=== PATIENT | male | born 1950 | race Two or more races ===

== ENCOUNTER 2019-03-04 06:00 | Inpatient (IN) | payer OTHER ==
[~2019-03-04] VITALS: Ht 165.1 cm; Wt 74.8 kg
[~2019-03-04 06:00] MED LIST: COZAAR50 MG PO; METFORMIN HCL500 MG PO; [UNRECOGNIZED DRUG - OTHER] PO
[2019-03-05] MEDS ORDERED: ROSUVASTATIN CA10 MG PO (09:46)
[2019-03-08] MEDS ORDERED: LOPRESSOR25 MG PO (14:17)
[2019-03-08] MEDS ORDERED: PANTOPRAZOLE SO40 MG PO (14:18)
[2019-03-08] MEDS ORDERED: DOCUSATE SODIU100 MG PO (14:19)
[2019-03-08] MEDS ORDERED: INTESTINEX680 M1 PO (14:19)
[2019-03-08] MEDS ORDERED: ULTRACET PO (14:20)
[2019-03-08] MEDS ORDERED: AMOX-CLAV 875-1 EACH PO (14:24)
== END 2019-03-08 14:38 | disposition home or self-care (01) | DRG 336 ==
LOC: CIR.AMB 06:00 → EDSTATUS 11:15 → SURG 11:15 → CIR.AMB 11:15 → SURG 18:22
PROVIDERS: ADMIT Surgery
PROC: 0DNV4ZZ Release Mesentery, Percutaneous Endoscopic Approach (ICD-10-PCS; 2019-03-04)
PROC: 0KXK0Z6 Transfer Right Abdomen Muscle, Transverse Rectus Abdominis Myocutaneous Flap, Open Approach (ICD-10-PCS; 2019-03-04)
PROC: 0WUF4JZ Supplement Abdominal Wall with Synthetic Substitute, Percutaneous Endoscopic Approach (ICD-10-PCS; principal; 2019-03-04 11:45)
PROC: 4A033R1 Measurement of Arterial Saturation, Peripheral, Percutaneous Approach (ICD-10-PCS; 2019-03-05)
PROC: 4A12X4Z Monitoring of Cardiac Electrical Activity, External Approach (ICD-10-PCS; 2019-03-05)
PROC: B246ZZZ Ultrasonography of Right and Left Heart (ICD-10-PCS; 2019-03-06)
PROC: BW24ZZZ Computerized Tomography (CT Scan) of Chest and Abdomen (ICD-10-PCS; 2019-03-06)
PROC: B54DZZZ Ultrasonography of Bilateral Lower Extremity Veins (ICD-10-PCS; 2019-03-06)
DX: K43.1 Incisional hernia with gangrene (principal); E87.0 Hyperosmolality and hypernatremia; N17.8 Other acute kidney failure; J98.11 Atelectasis; I97.191 Other postprocedural cardiac functional disturbances following other surgery; R00.0 Tachycardia, unspecified; K66.0 Peritoneal adhesions (postprocedural) (postinfection); I11.9 Hypertensive heart disease without heart failure; E78.00 Pure hypercholesterolemia, unspecified; E78.49 Other hyperlipidemia; E11.9 Type 2 diabetes mellitus without complications; R09.02 Hypoxemia; I34.0 Nonrheumatic mitral (valve) insufficiency